=== PATIENT | female | born 1970 | race Asian ===

== ENCOUNTER 2016-09-25 12:28 | Inpatient (IN) | payer OTHER ==
[2016-09-23 15:48] LABS: BASOPHILS # (AUTO) 0.1 K/uL (0.0-0.2); BASOPHILS % (AUTO) 1.1 % (0.0-2.0); EOSINOPHILS # (AUTO) 0.1 K/uL (0.0-0.4); EOSINOPHILS % (AUTO) 1.1 % (0.0-4.0); HEMATOCRIT 36.3 % (36-48); HEMOGLOBIN 11.6 g/dL (12.0-16.0); LYMPHOCYTES # (AUTO) 2.2 K/uL (1.0-5.5); MEAN CORPUSCULAR HEMOGLOBIN 26 pg (27-31); MEAN CORPUSCULAR HGB CONC 32 % (32-36); MEAN CORPUSCULAR VOLUME 80 fL (79.0-98.0); MONOCYTES # (AUTO) 0.4 K/uL (0.0-1.0); MONOCYTES % (AUTO) 7.5 % (1.7-9.3); NEUTROPHILS # (AUTO) 2.9 K/uL (1.8-7.7); NEUTROPHILS % (AUTO) 52.3 % (40.0-70.0); PLATELET COUNT (AUTO) 475 K/uL (130-430); RED BLOOD CELL COUNT(AUTO) 4.52 MIL/uL (4.2-6.2); RED CELL DISTRIBUTION WIDTH 16.8 % (9.0-15.0); WHITE BLOOD COUNT (AUTO) 5.7 K/uL (4.8-10.8)
[2016-09-23 16:15] LABS: ALBUMIN 3.9 g/dL (3.4-4.8); CALCIUM 9.4 mg/dL (8.4-11.0); CREATININE 0.58 mg/dL (0.55-1.30); POTASSIUM 4.1 mmol/L (3.5-5.1); TOTAL BILIRUBIN 0.2 mg/dL (0.0-1.0); TOTAL PROTEIN, SERUM 7.9 g/dL (6.4-8.3)
[~2016-09-25] VITALS: Ht 157.5 cm; Wt 55.3 kg
[2016-09-25] MEDS ORDERED: CEFAZOLIN SOD 2 GM in D5W 50 ML IV ONE (13:00)
[2016-09-25] MEDS ORDERED: DEXAMETHASONE SOD PHOSPHATE 4 MG/ML VIAL IVP ONE (14:10)
[2016-09-25] MEDS ORDERED: IBUPROFEN 600 MG TABLET PO PRN (14:45)
[2016-09-25] MEDS ORDERED: LR 1,000 ML IV SCH (15:14)
[2016-09-25] MEDS ORDERED: HYDROmorphone 2 MG/ML VIAL IVP PRN ×2 (15:15)
[2016-09-25] MEDS ORDERED: HYDROmorphone 1 MG INJ. 1 MG/ML AMPUL IVP PRN (15:15)
[2016-09-25] MEDS ORDERED: MEPERIDINE HCL/PF 25 MG/ML DISP.SYRIN IVP PRN (15:15)
[2016-09-25] MEDS ORDERED: DILTIAZEM HCL 25 MG/5 ML VIAL IVP ONE (16:00)
[2016-09-25] MEDS ORDERED: HYDROmorphone 2 MG/ML VIAL ONE (16:01)
[2016-09-25 17:02] VITALS: BP 158/77; PULSE 114; RESP 18; TEMP 98.1; O2SAT 98
--- NOTE | 2016-09-25 17:20 | NUR ---
initial notes rec patient from rr s/p supra cervical hysterectomy accompanied by . awake alert with ivf infusing well on the l wrist area. no infiltration noted. abdominal dressing intact. no bleeding noted. mcconnell cath intact draining to brian output. denies pain at this time. call light within reached and knows when to call for assistance. bed in low position and knows when to call for help.
[2016-09-25] MEDS: MORPHINE 4 MG/ML INJ. SYRINGE IVP PRN ×2 (18:35→22:24)
--- NOTE | 2016-09-25 18:45 | NUR ---
closing notes pt asleep after medicated with pain med. denies pain resting comfortably. no sob noted.
--- NOTE | 2016-09-25 19:49 | NUR ---
PM ASSESSMENT PT. RESTING QUIETLY, VITAL SIGNS STABLE, NO DISTRESS NOTED, DENIES PAIN, ENCOURAGED PT. TO USE INCENTIVE SPIROMETER 10 X/HR WHILE AWAKE, PT. ABLE TO DEMONSTRATE PROPER USE UP TO 2000 ML. NOTED WITH ABDOMINAL DRESSING, CLEAN, DRY, INTACT. NOTED WITH MOORE CATHETER DRAINING WELL TO GRAVITY WITH CLEAR, YELLOW URINE. UPDATED WITH PLAN OF CARE, ENCOURAGED PT. TO USE CALL LIGHT FOR ASSISTANCE, CALL LIGHT WITHIN REACH.
[2016-09-25 20:00] VITALS: BP 153/93; PULSE 57; RESP 18; TEMP 98; O2SAT 98
--- NOTE | 2016-09-25 21:32 | NUR ---
RN ROUNDS PT. RESTING QUIETLY, VITAL SIGNS STABLE, NO DISTRESS NOTED, DENIES PAIN. CALL LIGHT WITHIN REACH.
--- NOTE | 2016-09-25 22:24 | NUR ---
PAIN PT. C/O ACHING PAIN TO ABDOMEN RATED 7/10, MORPHINE 4 MG IVP GIVEN ORDERED, PT. ALSO C/O NAUSEA, ZOFRAN 4 MG IVP GIVEN ORDERED. VITAL SIGNS STABLE, NO DISTRESS NOTED. CALL LIGHT WITHIN REACH.
[2016-09-25] MEDS: ONDANSETRON HCL 4 MG/2 ML VIAL IVP PRN (22:29)
[2016-09-25 22:58] VITALS: BP 153/93; PULSE 57
[2016-09-25 23:57] VITALS: BP 141/70; PULSE 18; RESP 18; TEMP 98.4; O2SAT 98
--- NOTE | 2016-09-26 | NUR ---
RN ROUNDS PT. RESTING QUIETLY, VITAL SIGNS STABLE, NO DISTRESS NOTED, DENIES PAIN, CALL LIGHT WITHIN REACH.
--- NOTE | 2016-09-26 02:00 | NUR ---
RN ROUNDS PT. RESTING QUIETLY, VITAL SIGNS STABLE, NO DISTRESS NOTED, DENIES PAIN, CALL LIGHT WITHIN REACH.
[2016-09-26] MEDS: ONDANSETRON HCL 4 MG/2 ML VIAL IVP PRN ×2 (03:32→06:58)
[2016-09-26] MEDS: MORPHINE 4 MG/ML INJ. SYRINGE IVP PRN ×3 (03:32→11:36)
--- NOTE | 2016-09-26 03:32 | NUR ---
PAIN PT. C/O SEVERE PAIN TO ABDOMEN RATED 8/10, MORPHINE 4 MG IVP GIVEN ORDERED, PT. C/O NAUSEA, ZOFRAN 4 MG IVP GIVEN ORDERED. VITAL SIGNS STABLE, CALL LIGHT WITHIN REACH.
[2016-09-26 04:00] VITALS: BP 145/78; PULSE 78; RESP 16; TEMP 97.1; O2SAT 96
--- NOTE | 2016-09-26 05:30 | NUR ---
RN ROUNDS PT. RESTING QUIETLY, VITAL SIGNS STABLE, NO DISTRESS NOTED, DENIES PAIN, CALL LIGHT WITHIN REACH.
--- NOTE | 2016-09-26 06:30 | NUR ---
MOORE CATHETER D/PRISCILLA MOORE CATHETER D/C'ED, ASSISTED PT. TO AMBULATE TO BATHROOM, HAT PLACED IN TOILET, EDUCATION PROVIDED TO PT.
[2016-09-26 07:14] LABS: BASOPHILS % (AUTO) 0.1 % (0.0-2.0); HEMATOCRIT 29.1 % (36-48); HEMOGLOBIN 9.3 g/dL (12.0-16.0); LYMPHOCYTES # (AUTO) 1.7 K/uL (1.0-5.5); LYMPHOCYTES % (AUTO) 12.3 % (20.5-51.5); MEAN CORPUSCULAR HEMOGLOBIN 26 pg (27-31); MEAN CORPUSCULAR HGB CONC 32 % (32-36); MEAN CORPUSCULAR VOLUME 80 fL (79.0-98.0); MONOCYTES % (AUTO) 7.5 % (1.7-9.3); NEUTROPHILS # (AUTO) 11.2 K/uL (1.8-7.7); PLATELET COUNT (AUTO) 392 K/uL (130-430); RED BLOOD CELL COUNT(AUTO) 3.62 MIL/uL (4.2-6.2); RED CELL DISTRIBUTION WIDTH 16.5 % (9.0-15.0); WHITE BLOOD COUNT (AUTO) 13.9 K/uL (4.8-10.8)
--- NOTE | 2016-09-26 07:40 | NUR ---
INITIAL NOTE RECEIVED PATIENT FROM [facility] NURSE, PATIENT IS ALERT AND ORIENTED X4, ASSESSMENT COMPLETE, PATIENT HAS IV ON RIGHT FA SALINE LOCK FLUSHING WELL, ABDOMINAL DRESSINGS ARE DRY AND INTACT, ENDORSE FROM [facility] THAT MOORE CATHETER WAS REMOVED AND PATIENT VOIDED 100ML AFTER REMOVAL, INSTRUCTED PATIENT TO USE CALL CHAWLA IF ASSISTANCE IS NEEDED, PATIENT VERBALIZED UNDERSTANDING, CALL CHAWLA LEFT NEXT TO PATIENT'S HAND, BED IN LOWEST POSITION, SIDE RAILS UP, FALL PRECAUTIONS IN PLACE, WILL CONTINUE TO MONITOR PATIENT.
--- NOTE | 2016-09-26 07:52 | NUR ---
Nutrition Update Mohit Scale 18 noted. Pt admitted for: D25.9 R10.2. Diet: Clear Liquid. BMI: 22.3 kg/m2 RD to follow per nutrition care standards.
--- NOTE | 2016-09-26 08:00 | NUR ---
INCENTIVE SPIROMETER PATIENT WAS REEDUCATED ON IMPORTANCE OF IS, PATIENT VERBALIZED UNDERSTANDING AND DEMONSTRATED USE OF IS, PATIENT WAS ABLE TO REACH 1000CC. PATIENT VERBALIZED THAT SHE KNOWS TO DO IT AT LEAST 10X A HOUR.
[2016-09-26 08:03] VITALS: BP 148/70; PULSE 79; RESP 17; TEMP 99; O2SAT 97
--- NOTE | 2016-09-26 08:43 | NUR ---
RN ROUNDS PATIENT IS CURRENTLY RESTING IN BED, NO SIGNS OF DISTRESS, PATIENT HAS NO COMPLAINTS OF PAIN AT THIS TIME, WILL CONTINUE TO MONITOR.
--- NOTE | 2016-09-26 09:59 | NUR ---
RN ROUNDS PATIENT IS UP WALKING AROUND, PATIENT GAIT IS STEADY
--- NOTE | 2016-09-26 10:22 | NUR ---
DR. LUCAS PAGED DR. LUCAS TO NOTIFY HIM THAT PATIENT IS HAVING DISCOMFORT, AWAITING CALL BACK
--- NOTE | 2016-09-26 11:17 | NUR ---
RN ROUNDS ORELLANA FLUSH WAS DONE ORDERED BY DR. LUCAS, PATIENT STATES HER DISCOMFORT IS MUCH BETTER AFTER ORELLANA FLUSH, NO OTHER NEEDS AT THIS TIME WILL CONTINUE TO MONITOR PATIENT, FALL PRECAUTIONS IN PLACE.
[2016-09-26] MEDS ORDERED: ceFAZolin SODIUM 2 GM in D5W 100 ML IV ONE (11:30)
[2016-09-26 11:35] LABS: NEUTROPHILS % (AUTO) 80.1 % (40.0-70.0)
[2016-09-26 12:00] VITALS: BP 152/89; PULSE 67; RESP 20; TEMP 98.9; O2SAT 99
[2016-09-26] MEDS ORDERED: METOCLOPRAMIDE HCL 10 MG/2 ML VIAL IVP ONE (12:15)
[2016-09-26] MEDS ORDERED: METOCLOPRAMIDE HCL 10 MG TABLET PO PRN (12:15)
--- NOTE | 2016-09-26 13:31 | NUR ---
RN ROUNDS PATIENT IS CURRENTLY RESTING IN BED, AT BEDSIDE, PATIENT STATES AFTER WARM BLANKETS WAS GIVEN SHE FEELS BETTER, NO OTHER NEEDS AT THIS TIME, WILL CONTINUE TO MONITOR.
--- NOTE | 2016-09-26 14:40 | NUR ---
RN ROUNDS PATIENT IS UP WALKING AROUND TO HELP WITH MILD DISCOMFORT, PATIENT'S GAIT IS STABLE
[2016-09-26 16:25] VITALS: BP 142/79; PULSE 70; RESP 17; TEMP 96.5; O2SAT 97
--- NOTE | 2016-09-26 16:59 | NUR ---
RN ROUNDS PATIENT IS CURRENTLY RESTING IN BED, PATIENT STATE SHE STILLS FEELS BLOATED AND CAN NOT PASS GAS, STATES SHE WILL WALK AROUND LATER TO HELP HER, NO OTHER NEEDS AT THIS TIME, WILL CONTINUE TO MONITOR.
[2016-09-26] MEDS: ACETAMINOPHEN/CODEINE 300 MG-30 MG TABLET PO PRN (18:16)
--- NOTE | 2016-09-26 18:47 | NUR ---
CLOSING NOTE PATIENT IS CURRENTLY LYING IN BED, AT BEDSIDE, NO SIGNS OF DISTRESS NOTED, BREATHING EVEN AND UNLABORED, PATIENT WAS GIVEN PRN PAIN MEDICATION FOR MILD DISCOMFORT, WILL REASSESS EFFECTIVENESS, ALL NEEDS MET, WILL ENDORSE PATIENT TO SERVICE OBSERVER NURSE, FALL PRECAUTIONS IN PLACE.
--- NOTE | 2016-09-26 19:14 | NUR ---
initial notes: pt in bed, alert,awake, orietned x 4. no pain. comfortable. with ongoing iv antibiotic, pt is ambulatory to br. vital sign are wnl. encourage to use call light. safety on. call light in reach. will follow-up.
[2016-09-26 19:19] VITALS: BP 145/88; PULSE 62; RESP 20; TEMP 98.6; O2SAT 95
[2016-09-26] MEDS: METOCLOPRAMIDE HCL 10 MG TABLET PO SCH (20:29)
--- NOTE | 2016-09-26 22:16 | NUR ---
NOTES: SLEEPING, COMFORTABLE. NO PAIN. NO SOB. SAFETY ON. CALL LIGHT IN REACH. WILL FOLLOW-UP.
--- NOTE | 2016-09-26 23:57 | NUR ---
notes: sleeping, comfortable. no pain. stable. will follow-up.
[2016-09-27 00:19] VITALS: BP 145/82; PULSE 62; RESP 20; TEMP 99.2; O2SAT 98
[2016-09-27] MEDS: ACETAMINOPHEN/CODEINE 300 MG-30 MG TABLET PO PRN ×2 (00:24→08:29)
--- NOTE | 2016-09-27 02:20 | NUR ---
notes: sleeping, comfortable. no pain. stable. will follow-up.
--- NOTE | 2016-09-27 04:27 | NUR ---
notes: sleeping, comfortable. no pain.no difficulty of breathing. safety on. call light in reach. will follow-up.
--- NOTE | 2016-09-27 05:16 | NUR ---
PT IS SEEN BY DR. SHAYY MD STATED TO GIVE ORELLANA FLUSH AND ENEMA, CALL MD AFTER BREAKFAST FOR DISCHARGE ORDER.
--- NOTE | 2016-09-27 06:09 | NUR ---
0555 olivas flush: explain olivas flush per dr. raphael. pt agree. position to left side. pt went to bathroom and olivas flush. pt tolerate well. pt stated a biog relief of abdominal distention. needs attended. call light in reach. will follow-up.
--- NOTE | 2016-09-27 06:40 | NUR ---
CLOSING: PT IS WATCHING TV. NO PAIN. NO ABDOMINAL DISTENTION. STABLE. CALL LIGHT IN REACH. SIDE RAILS UP. WILL GIVE BEDSIDE REPORT TO AM RN.
--- NOTE | 2016-09-27 07:20 | NUR ---
INITIAL NOTE PATIENT IS CURRENTLY LYING DOWN IN BED, PATIENT HAS NO SIGNS OF DISTRESS, PATIENT IS ALERT AND ORIENTED X4, ASSESSMENT COMPLETE,PATIENT HAS IV ON RIGHT FA SALINE LOCK, PATIENT STATES SHE FEELS MUCH BETTER AFTER ORELLANA FLUSH, INSTRUCTED PATIENT TO USE CALL CHAWLA IF ASSISTANCE IS NEEDED, PATIENT VERBALIZED UNDERSTANDING, CALL CHAWLA LEFT NEXT TO PATIENT'S HAND, BED IN LOWEST POSITION, SIDE RAILS UP, FALL PRECAUTIONS IN PLACE, WILL CONTINUE TO MONITOR PATIENT.
[2016-09-27 08:00] VITALS: BP 132/75; PULSE 71; RESP 16; TEMP 98.6; O2SAT 98
[2016-09-27] MEDS: METOCLOPRAMIDE HCL 10 MG TABLET PO SCH (08:29)
--- NOTE | 2016-09-27 08:31 | NUR ---
MEDICATIONS PATIENT RECEIVED MORNING MEDICATIONS, INFORMED PATIENT OF POTENTIAL SIDE EFFECTS OF MEDICATIONS, PATIENT VERBALIZED UNDERSTANDING, NO OTHER NEEDS AT THIS TIME, WILL CONTINUE TO MONITOR PATIENT.
[2016-09-27] MEDS ORDERED: ceFAZolin SODIUM 2 GM in D5W 100 ML IV SCH ×4 (09:00)
--- NOTE | 2016-09-27 09:50 | NUR ---
RN ROUNDS PATIENT IS CURRENTLY SITTING UP IN BED, IS AT BEDSIDE, PATIENT STATES SHE FEELS MUCH BETTER, PATIENT WAS ABLE TO TOLERATED REGULAR DIET, PATIENT STATES SHE IS PASSING GAS NOW, MORE THAN BEFORE, PAGED DR. LUCAS TO GIVE HIM UPDATE, AWAITING CALL BACK, FALL PRECAUTIONS IN PLACE, WILL CONTINUE TO MONITOR PATIENT.
[2016-09-27 11:04] VITALS: BP 132/75; PULSE 71; RESP 17; TEMP 98.6; O2SAT 98
[2016-09-27] MEDS ORDERED: ROCURONIUM BROMIDE 10 MG/ML (ZEMURON) IV ONE (11:24)
[2016-09-27] MEDS ORDERED: BUPIVACAINE /EPINEPHRINE/PF 0.25% 30 ML VIAL INJ ONE (11:24)
[2016-09-27] MEDS ORDERED: KETOROLAC TROMETHAMINE 30 MG VIAL IVP ONE (11:24)
[2016-09-27] MEDS ORDERED: NS IRRIG SOLN 1000 ML IR ONE (11:24)
[2016-09-27] MEDS ORDERED: KETAMINE HCL 500 MG/10 ML VIAL IVP ONE (11:24)
[2016-09-27] MEDS ORDERED: MIDAZOLAM HCL 5 MG/5 ML VIAL IVP ONE (11:24)
[2016-09-27] MEDS ORDERED: PROPOFOL 200MG/ 20ML VIAL (DIPRIVAN) IV ONE (11:24)
[2016-09-27] MEDS ORDERED: PHENYLEPHRINE HCL 10 MG/ML VIAL (NEOSYNEPHRINE) IV ONE (11:24)
[2016-09-27] MEDS ORDERED: ONDANSETRON HCL 4 MG/2 ML VIAL IVP ONE (11:24)
[2016-09-27] MEDS ORDERED: METOCLOPRAMIDE HCL 10 MG/2 ML VIAL IVP ONE (11:24)
[2016-09-27] MEDS ORDERED: LR 1,000 ML IV.SOLN IV ONE (11:24)
[2016-09-27] MEDS ORDERED: SEVOFLURANE 15 MIN GAS INH ONE (11:24)
[2016-09-27] MEDS ORDERED: GLYCOPYRROLATE 0.2 MG/ML VIAL IJ ONE (11:24)
[2016-09-27] MEDS ORDERED: fentaNYL CITRATE 250 MCG/5 ML AMP IV ONE (11:24)
== END 2016-09-27 11:25 | disposition home or self-care (01) | DRG 743 ==
LOC: SMU 12:28
PROVIDERS: ADMIT Obstetrics & Gynecology; ATTEND Obstetrics & Gynecology
PROC: 0UT90ZZ Resection of Uterus, Open Approach (ICD-10-PCS; principal; 2016-09-25 14:30)
DX: D25.9 Leiomyoma of uterus, unspecified (principal); F17.210 Nicotine dependence, cigarettes, uncomplicated
CPT/HCPCS: 36415; 80053; 84702-TC; 84703; 85025; 86886; 86900; 86901; 87081; 88307; 93005; 94010; 94760; J0690; J1100; J1170; J1885; J2250; J2270; J2370; J2405; J2704; J2765; J3010; J3490; J7030; J7060; J7120; J8597